=== PATIENT | male | born 1995 | race Caucasian/White ===

== ENCOUNTER 2025-04-19 18:41 | Emergency (ER) | payer OTHER, SELFPAY ==
--- OUTSIDE RECORDS SUMMARY | 2025-04-19 14:03 | XMS_ITS | Encounter Summary ---
Author Organization [facility] tem Address [id number] [address] [place] [address] Care Team Providers Care Blueprint Duplicator Name Role Phone Unavailable Primary Care Provider Unavailabl e Reason for Visit * ReasonCommentsAbdominal Pain Encounter Details DateTypeDepartmentCare Team (Latest Contact Info)Eamskppizwp93/28/2025 2:03 PM EST - 04/19/2025 5:04 PM ESTEmerVan Wert [facility] - [facility] Department [address] [facility] [place] [address] Discharge Disposition: Left Without Treatment Social History Tobacco UseTypesPacks/DayYears UsedDateSmoking Tobacco: NeverSmokeless Tobacco: Never Tobacco Cessation:Counseling Given: Not Answered Alcohol UseStandard Drinks/WeekCommentsYes0 (1 standard drink = 0.6 oz pure alcohol)1x weekChildcareAnswerDate VjlydgmnUjyrrbippCmselsz07/12/2019Employment AnswerDate HqqblcjbOxldwpnqqpIxkvlez58/12/2019Hunger ScreeningAnswerDate RecordedWithin the past 12 months we worried whether our food would run out before we got money to buy more.Never True04/19/2025Within the past 12 months the food we bought just didn't last and we didn't have money to get more.Never True04/19/2025Sex and Gender InformationValueDate RecordedSex Assigned at Not on fileLegal OqcDaxb5912/26/2014 12:13 PM EDTGender IdentityNot on fileSexual OrientationNot on filedocumented as of this encounter Last Filed Vital Signs Vital SignReadingTime TakenCommentsBlood Lxvvoiim033/9804/19/2025 2:17 PM EST Xrvxz75606/ 2:17 PM BHWZaalridjejc87.6 ??C (97.8 ??F)04/19/2025 2:17 PM ESTRespiratory Jzqi220606/19/2024 2:17 PM ESTOxygen Owjhpyrbzl27%04/19/2025 2:17 PM ESTInhaled Oxygen Concentration--Zxkupp207.3 kg (230 lb)04/19/2025 2:17 PM BZGGreuji608.2 cm (5' 7 )04/19/2025 2:17 PM ESTBody Mass Index36.02106/19/2024 2:17 PM ESTdocumented in this encounter ED Notes * Oma Bob RN - 04/19/2025 2:15 PM EST Pt ambulatory with reports of sudden onset of RLQ abd pain that started this morning. Pt denies hx of abdominal pain. Denies N/V/D. A&Ox4 documented in this encounter Plan of Treatment Not on file documented as of this encounter Procedures Procedure NamePriorityDate/TimeAssociated DiagnosisCommentsCBC WITH AUTO NYITQIFNANRAHXDO08/28/2025 2:18 PM EST ABAGQIODAN90/28/2025 2:18 PM EST COMPREHENSIVE METABOLIC VFKXOYMDJ68/28/2025 2:18 PM EST documented in this encounter Results * Lipase (04/19/2025 2:18 PM EST)ComponentValueRef RangeTest MethodAnalysis Time Performed AtPathologist IlbiphjxdODVDPF2811 - 82 U/L106/19/2024 3:03 PM EST [facility] LABORATORYSpecimen (Source)Anatomical Location / LateralityCollection Method / VolumeCollection TimeReceived TimeBloodVenous blood / UnknownVenipuncture / Nnnbexq5904/19/2025 2:18 PM EST04/19/2025 2:30 PM EST Narrative Authorizing ProviderResult TypeResult StatusMaxkeven Kimball Buchwalder DOLAB BLOOD ORDERABLESFinal ResultPerforming OrganizationAddressCity/State/ZIP CodePhone Number [facility] [address] [place] [phone], * (ABNORMAL) Comprehensive metabolic panel (04/19/2025 2:18 PM EST)Component ValueRef RangeTest MethodAnalysis TimePerformed AtPathologist SignatureSODIUM 590426 - 146 mmol/L106/19/2024 3:03 PM [facility] POTASSIUM3.83.5 - 5.0 mmol/L106/19/2024 3:03 PM [facility] KGVLMJVYSXBSPZXLBF24655 - 109 mmol/L106/19/2024 3:03 PM [facility] LABORATORYCARBON VIHEYLA2056 - 32 mmol/L106/19/2024 3:03 PM [facility] LABORATORYANION BJP976 - 15 mmol/L106/19/2024 3:03 PM [facility] LABORATORYBLOOD UREA ANRGAOXH463 - 23 mg/dL04/19/2025 3:03 PM [facility] LABORATORYCREATININE0.860.60 - 1.30 mg/dL 04/19/2025 3:03 PM [facility] LABORATORYComment:METHOD TRACEABLE TO IDMS QCARWCTCCUPKDLI212(H)65 - 99 mg/dL04/19/2025 3:03 PM [facility] LABORATORYCALCIUM9.88.5 - 10.5 mg/dL04/19/2025 3:03 PM [facility] LABORATORYTOTAL PROTEIN7.36.0 - 8.0 g/dL 04/19/2025 3:03 PM [facility] LABORATORYALBUMIN4.83.2 - 5.3 g/dL04/19/2025 3:03 PM [facility] LABORATORYALKALINE WVAGKAVSOGD6174 - 130 U/L106/19/2024 3:03 PM [facility] VTZMNQVAXPJQB05(H)<=41 U/L106/19/2024 3:03 PM [facility] MGGSDHYIRFMPI942(H)<=40 U/L106/19/2024 3:03 PM [facility] LABORATORYBILIRUBIN,TOTAL0.30.3 - 1.2 mg/dL04/19/2025 3:03 PM [facility] LABORATORYEGFR Non-Race Dependent>90>=60 ml/min/1.73sq.m 04/19/2025 3:03 PM [facility] LABORATORYComment: Reported eGFR is based on the CKD-EPI 2020 equation that does not use a race coefficient. Specimen (Source)Anatomical Location / LateralityCollection Method / Volume Collection TimeReceived TimeBloodVenous blood / UnknownVenipuncture / Unknown 04/19/2025 2:18 PM EST04/19/2025 2:30 PM EST Narrative Authorizing ProviderResult TypeResult StatusMaxwakemed cary hospital Jigar [facility] BLOOD ORDERABLESFinal ResultPerforming OrganizationAddressCity/State/ZIP CodePhone Number [facility] [address] [place] [address], * (ABNORMAL) CBC auto differential (04/19/2025 2:18 PM EST)ComponentValueRef RangeTest MethodAnalysis TimePerformed AtPathologist SignatureWBC7.64 - 11 10^9/L106/19/2024 2:44 PM [facility] LABORATORYRBC Count6.40 (H)4.1 - 5.7 10^12/L106/19/2024 2:44 PM [facility] Pgarptjncz45.913 - 17 g/dL04/19/2025 2:44 PM [facility] RLIBNVVABDSlwqqczmrq44.339 - 50 %04/19/2025 2:44 PM [facility] WPZUFVZZTFIXN77(L)80 - 100 fL04/19/2025 2:44 PM [facility] TJCCVTPUQMOLH73.9(L)27 - 34 pg04/19/2025 2:44 PM [facility] TFGROVFQPUXOKB35.032 - 36 g/dL04/19/2025 2:44 PM [facility] SZXSRRZAWDBXV27.011.5 - 15 %04/19/2025 2:44 PM [facility] LABORATORYPlatelet Rocnu922550 - 450 10^9/L106/19/2024 2:44 PM [facility] LABORATORYMPV7.57 - 12 fL04/19/2025 2:44 PM [facility] LABORATORYNeutrophils %63.8%04/19/2025 2:44 PM [facility] LABORATORYLymphocytes %26.2%04/19/2025 2:44 PM [facility] LABORATORYMonocytes %8.0%04/19/2025 2:44 PM [facility] LABORATORYEosinophils %1.2%04/19/2025 2:44 PM [facility] LABORATORYBasophils %0.8%04/19/2025 2:44 PM [facility] LABORATORYNeutrophils Absolute (A)4.81.5 - 6.6 10^9/L 04/19/2025 2:44 PM [facility] LABORATORYLymphocytes Absolute 2.01.0 - 3.5 10^9/L106/19/2024 2:44 PM [facility] Monocytes Absolute0.60.0 - 0.9 10^9/L106/19/2024 2:44 PM [facility] LABORATORYEosinophils Absolute0.10.0 - 0.4 10^9/L106/19/2024 2:44 PM [facility] LABORATORYBasophils Absolute0.10.0 - 0.2 10^9/L 04/19/2025 2:44 PM [facility] LABORATORYDifferential Type AUTOMATED DJFJMZNIUQDW46/28/2025 2:44 PM [facility] LABORATORYSpecimen (Source)Anatomical Location / LateralityCollection Method / VolumeCollection TimeReceived TimeBloodVenous blood / UnknownVenipuncture / Kgctftd5404/19/2025 2:18 PM EST04/19/2025 2:29 PM EST Narrative Authorizing ProviderResult TypeResult StatusMaxkeven Phillipser DOL BLOOD ORDERABLESFinal ResultPerforming OrganizationAddressCity/State/ZIP CodePhone Number [facility] [address] [place] [phone], documented in this encounter Visit Diagnoses Not on filedocumented in this encounter
[2025-04-19 19:06] VITALS: BP 134/90; PULSE 108; TEMP 37; O2SAT 96; BMI 36.0
--- NOTE | 2025-04-19 19:22 | CT_ITS ---
The [address] [address] Patient Name: CLAIRE VILA MRN: [facility]:[id number] date: 1995 Sex: M Assigned Patient Location: ER Current Patient Location: ED.MAIN Accession/Order Number: [id number] Exam Date: 04/19/2025 19:28 Report Date: 04/19/2025 19:59 At the request of: JUSTIN SAVAGE DO Procedure: CT abdomen pelvis wo con CT ABDOMEN AND PELVIS WITHOUT INTRAVENOUS CONTRAST: CLINICAL HISTORY: RLQ pain, r/o ureterolithiasis COMPARISON: None TECHNIQUE: Spiral images were obtained through the abdomen and pelvis without intravenous contrast. This CT exam was performed using one or more following dose reduction techniques: Automated exposure control, adjustment of the mA and/or kV according to patient size, or use of iterative reconstruction technique. FINDINGS: Lung Bases: [Focal lingular scarring versus atelectasis. Otherwise lung bases are clear. Organs:2 mm right renal calculus, nonobstructive. Additional punctate right lower pole calculus and punctate left upper pole calculus, nonobstructive. Negative for hydronephrosis. No ureterolithiasis. Fatty liver. Gallbladder, spleen, adrenals, pancreas unremarkable.[ GI: Mild to moderate retained stool. No bowel obstruction. Appendix is unremarkable.[ Pelvis:[Bladder unremarkable. Prostate unremarkable.] Peritoneum/Retroperitoneum:No free air or fluid.[There are a few prominent mesenteric lymph nodes, possibly reactive. Abd wall/Bones:No suspicious osseous lesion.[ CT/CT abdomen pelvis wo con IMPRESSION: Bilateral nonobstructive renal calculi up to 2 mm in size. Fatty infiltration liver. Negative acute inflammatory process or bowel obstruction. Impression dictated by: Luciano Aguilar M.D. 04/19/2025 7:59 PM Dictation Location: [place] [address] Electronically authenticated by: [id number] Y Date: 04/19/2025 19:59
--- OUTSIDE RECORDS SUMMARY | 2025-04-19 19:40 | XMS_ITS | Clinical Summary ---
Author Organization [facility] Ping4 [facility] Address [id number] [address] [place] [address] Care Team Providers Care Jewel Gauger Name Role Phone Unavailable Primary Care Provider Unavailabl e Allergies No known active allergies Medications No known medications Encounters DateTypeDepartmentCare DljfDhbcugroiow15/28/2025 2:03 PM EST - 04/19/2025 5:04 PM [facility] [address] [facility] [place] [id number] Discharge Disposition: Left Without Vgptqjqau87/28/2025Travelfrom Last 3 Months Social History Tobacco UseTypesPacks/DayYears UsedDateSmoking Tobacco: NeverSmokeless Tobacco: Never Tobacco Cessation:Counseling Given: Not Answered Alcohol UseStandard Drinks/WeekCommentsYes0 (1 standard drink = 0.6 oz pure alcohol)1x weekChildcareAnswerDate IompxeymYsvexeglhYohqzfh01/12/2019Employment AnswerDate FbnpcfyfAujsxvubpaKnbqnhk31/12/2019Hunger ScreeningAnswerDate RecordedWithin the past 12 months we worried whether our food would run out before we got money to buy more.Never True04/19/2025Within the past 12 months the food we bought just didn't last and we didn't have money to get more.Never True04/19/2025Sex and Gender InformationValueDate RecordedSex Assigned at Not on fileLegal MpxTsxo8512/26/2014 12:13 PM EDTGender IdentityNot on fileSexual OrientationNot on file Last Filed Vital Signs Vital SignReadingTime TakenCommentsBlood Tnizcndu083/9804/19/2025 2:17 PM EST Brgby46365/28/2025 2:17 PM HHJTggdxqyypyn17.6 ??C (97.8 ??F)04/19/2025 2:17 PM ESTRespiratory Lgob677606/19/2024 2:17 PM ESTOxygen Lfqjskszvf54%04/19/2025 2:17 PM ESTInhaled Oxygen Concentration--Ueorsp659.3 kg (230 lb)04/19/2025 2:17 PM ZWTUqejhu166.2 cm (5' 7 )04/19/2025 2:17 PM ESTBody Mass Index36.02106/19/2024 2:17 PM EST Plan of Treatment Not on file Medical Devices Not on file Procedures Procedure NamePriorityDate/TimeAssociated UqgiklfddRoopnakiWYMOBDKAEX08/28/2025 2:18 PM EST COMPREHENSIVE METABOLIC JRDJGUUDH23/28/2025 2:18 PM EST CBC WITH AUTO FVHASUETJAMHASPZ89/28/2025 2:18 PM EST from Last 3 Months Results * (ABNORMAL) CBC auto differential (04/19/2025 2:18 PM EST)ComponentValueRef RangeTest MethodAnalysis TimePerformed AtPathologist SignatureWBC7.64 - 11 10^9/L106/19/2024 2:44 PM [facility] LABORATORYRBC Count6.40 (H)4.1 - 5.7 10^12/L106/19/2024 2:44 PM [facility] Vritoejcim50.913 - 17 g/dL04/19/2025 2:44 PM [facility] DIRRBPLFCWSskextqcvg64.339 - 50 %04/19/2025 2:44 PM [facility] SPGFTNWVDTYMO06(L)80 - 100 fL04/19/2025 2:44 PM [facility] RAAAYLRTLNWKZ23.9(L)27 - 34 pg04/19/2025 2:44 PM [facility] TEJFIZYMISSZDS85.032 - 36 g/dL04/19/2025 2:44 PM [facility] GIKQVZGYFJNGE81.011.5 - 15 %04/19/2025 2:44 PM [facility] LABORATORYPlatelet Bxiag936808 - 450 10^9/L106/19/2024 2:44 PM [facility] [...] LABORATORYEosinophils Absolute0.10.0 - 0.4 10^9/L106/19/2024 2:44 PM [facility] LABORATORYBasophils Absolute0.10.0 - 0.2 10^9/L 04/19/2025 2:44 PM [facility] LABORATORYDifferential Type AUTOMATED OEKMGIXVNEPM61/28/2025 2:44 PM [facility] LABORATORYSpecimen (Source)Anatomical Location / LateralityCollection Method / VolumeCollection TimeReceived TimeBloodVenous blood / UnknownVenipuncture / Ilppoii9604/19/2025 2:18 PM EST04/19/2025 2:29 PM EST Narrative Authorizing ProviderResult TypeResult StatusMaxkeven Cavazos DOLAB BLOOD ORDERABLESFinal ResultPerforming OrganizationAddressCity/State/ZIP CodePhone Number [facility] [address] [place] [address], * Lipase (04/19/2025 2:18 PM EST)ComponentValueRef RangeTest MethodAnalysis Time Performed AtPathologist PdqxbpwcuNRWXEF0839 - 82 U/L106/19/2024 3:03 PM EST [facility] LABORATORYSpecimen (Source)Anatomical Location / LateralityCollection Method / VolumeCollection TimeReceived TimeBloodVenous blood / UnknownVenipuncture / Cpcsgdc2304/19/2025 2:18 PM EST04/19/2025 2:30 PM EST Narrative Authorizing ProviderResult TypeResult StatusMaxatrium health [facility] BLOOD ORDERABLESFinal ResultPerforming OrganizationAddressCity/State/ZIP CodePhone Number [facility] [address] [place] [address], * (ABNORMAL) Comprehensive metabolic panel (04/19/2025 2:18 PM EST)Component ValueRef RangeTest MethodAnalysis TimePerformed AtPathologist SignatureSODIUM 803952 - 146 mmol/L106/19/2024 3:03 PM [facility] POTASSIUM3.83.5 - 5.0 mmol/L106/19/2024 3:03 PM [facility] DXBOTEVIAXBEARBWLU17021 - 109 mmol/L106/19/2024 3:03 PM [facility] LABORATORYCARBON BJOVNMR2045 - 32 mmol/L106/19/2024 3:03 PM [facility] LABORATORYANION PDG785 - 15 mmol/L106/19/2024 3:03 PM [facility] LABORATORYBLOOD UREA QUPLDVLU750 - 23 mg/dL04/19/2025 3:03 PM [facility] LABORATORYCREATININE0.860.60 - 1.30 mg/dL 04/19/2025 3:03 PM [facility] LABORATORYComment:METHOD TRACEABLE TO IDMS ZYPSLDVTDITVXST514(H)65 - 99 mg/dL04/19/2025 3:03 PM [facility] LABORATORYCALCIUM9.88.5 - 10.5 mg/dL04/19/2025 3:03 PM [facility] LABORATORYTOTAL PROTEIN7.36.0 - 8.0 g/dL 04/19/2025 3:03 PM [facility] LABORATORYALBUMIN4.83.2 - 5.3 g/dL04/19/2025 3:03 PM [facility] LABORATORYALKALINE HFBUGYWNJEL6328 - 130 U/L106/19/2024 3:03 PM [facility] VOCTAHNIOUKXN51(H)<=41 U/L106/19/2024 3:03 PM [facility] RFBOEVFRJZQHK151(H)<=40 U/L106/19/2024 3:03 PM [facility] [...] PM EST Narrative Authorizing ProviderResult TypeResult StatusMaxkeven Cavazos [facility] BLOOD ORDERABLESFinal ResultPerforming OrganizationAddressCity/State/ZIP CodePhone Number [facility] [address] [place] [address], [place] [phone] from Last 3 Months
--- OUTSIDE RECORDS SUMMARY | 2025-04-19 19:40 | XMS_ITS | Encounter Summary ---
Author Organization [employer] tem Address [id number] [address] [place] [address] Care Team Providers Care Fashion Director Name Role Phone Unavailable Primary Care Provider Unavailabl e Encounter Details DateTypeDepartmentCare Team (Latest Contact Info)Njfldwzjofm62/28/2025Travel Social History Tobacco UseTypesPacks/DayYears UsedDateSmoking Tobacco: NeverSmokeless Tobacco: NeverAlcohol UseStandard Drinks/WeekCommentsYes0 (1 standard drink = 0.6 oz pure alcohol)1x weekChildcareAnswerDate UplrbftsHptunrisrRjuujpk20/12/2019Employment AnswerDate QtmripnbCojzsldfovPuxipor00/12/2019Hunger ScreeningAnswerDate RecordedWithin the past 12 months we worried whether our food would run out before we got money to buy more.Never True04/19/2025Within the past 12 months the food we bought just didn't last and we didn't have money to get more.Never True04/19/2025Sex and Gender InformationValueDate RecordedSex Assigned at Not on fileLegal VzvUzhk6912/26/2014 12:13 PM EDTGender IdentityNot on fileSexual OrientationNot on filedocumented as of this encounter Plan of Treatment Not on file documented as of this encounter Visit Diagnoses Not on filedocumented in this encounter
--- OUTSIDE RECORDS SUMMARY | 2025-04-19 19:40 | XMS_ITS | Clinical Summary ---
Author Organization [facility] Address [address] [place] [address] Care Team Providers Care Mechanical Specialist Name Role Phone Nicole Gomez MA Primary Care Provider Unavail able Allergies No known active allergies Medications No known medications Social History Tobacco UseTypesPacks/DayYears UsedDateSmoking Tobacco: Never AssessedSex and Gender InformationValueDate RecordedSex Assigned at BirthNot on fileLegal Sex Male08/04/2022 6:39 PM EDTGender IdentityNot on fileSexual OrientationNot on file Last Filed Vital Signs Vital SignReadingTime TakenCommentsBlood Qnmcqvyw825/8412/11/2023 12:08 PM EDT Xmbjz15358/21/2024 12:08 PM OIFPzkdsqnopia73.8 ??C (100 ??F)12/11/2023 12:08 PM EDTRespiratory Rate--Oxygen Vxhcyguxwc85%12/11/2023 12:08 PM EDTInhaled Oxygen Concentration--Snqwxp94.2 kg (212 lb)12/11/2023 12:08 PM GFZBinwzb700.2 cm (5' 7 )04/02/2021 12:00 PM ESTBody Mass Index33. 12:00 PM EST Plan of Treatment Health MaintenanceDue DateLast DoneCommentsCOVID-19 Vaccine ( season) 2025Influenza Vaccine (#1)2025Pneumococcal Vaccine: Pediatrics (0 to 5 Years) and At-Risk Patients (6 to 64 Years)Aged OutNo longer eligible based on patient's age to complete this topic Insurance Care Teams Team MemberRelationshipSpecialtyStart DateEnd Date Nicole Gomez MA [address] [place] [address] PCP - GeneralObstetrics and Gynecology12/11/23
--- OUTSIDE RECORDS SUMMARY | 2025-04-19 19:40 | XMS_ITS | Clinical Summary ---
Author Organization [facility] Address [address] [place] [address] Care Team Providers Care Yard Driver Name Role Phone Jason TOURE DO, Rolland R Unavailable [phone] Family History Medical HistoryRelationCommentsSkin CancerFatherThyroid CancerFatherMelanoma Maternal AuntHodgkin LymphomaMaternal GrandfatherProstate CancerPaternal GrandfatherBladder CancerPaternal UncleRelationStatusCommentsFatherMaternal Aunt AliveMaternal GrandfatherPaternal GrandfatherPaternal UncleAlive Social History Tobacco UseTypesPacks/DayYears UsedDateSmoking Tobacco: Never AssessedArea Deprivation IndexAnswerDate RecordedNational Score (1-100), lower number is lower swip858610/04/2023State Score (1-10), lower number is lower rgpo863 Data from: https://www.neighborhoodatlas.[facility].edu/. Last address used for [address] [address]/04/2023Sex and Gender InformationValueDate RecordedSex Assigned at BirthNot on fileLegal QusAoaq4209/13/2023 1:13 PM EDT Gender IdentityNot on fileSexual OrientationNot on file Plan of Treatment Health MaintenanceDue DateLast DoneCommentsDTaP,Tdap,Td Vaccine (6 - Tdap) , 02/07/1995, 05/12/1994, Additional history existsAnxiety Goseytnki20/12/2012Depression Qqhuryakc99/12/2012HIV Riftnfhjm88/12/2012 Hepatitis C Szssuhblq08/12/2012Covid-19 Vaccine (2024- season)2025 Influenza Vaccine (#1)2025Hepatitis B BvenvtlNwvybknbc75/05/1999, 05/12/1994, 02/12/1994, Additional history existsHPV OfwqcohSjciafxkl99/23/2016, 04/15/2015, 02/11/2015 Insurance Care Teams Team MemberRelationshipSpecialtyStart DateEnd Date Miguel Angel Gomez III, DO [address] [place] [address] ReferringFamily [facility]09/19/23
[2025-04-19 19:43] LABS: Hematocrit 50.3 % (42.0-54.0); Hemoglobin 16.5 g/dL (14.0-18.0); Immature Granulocytes Abs Auto 0.06 10^3/uL (0.00-0.03); Immature Granulocytes Pct Auto 0.6 % (0.0-0.5); Lymphocytes Absolute Auto 2.9 10^3/uL (1.2-3.8); Mean Corpuscular HGB Conc 32.8 g/dL (29.9-35.2); Mean Corpuscular Hemoglobin 25.0 pg (25.9-34.0); Mean Corpuscular Volume 76.2 fL (80.0-94.0); Platelet Count 282 10^3/uL (150-450); Red Blood Count 6.60 10^6/uL (4.70-6.10); White Blood Count 10.6 10^3/uL (4.0-11.0)
[2025-04-19 20:01] LABS: Alanine Aminotransferase 252 U/L (16-63); Albumin Globulin Ratio 1.3; Albumin Level 4.4 g/dL (3.4-5.0); Alkaline Phosphatase 80 U/L (46-116); Anion Gap 8.1; Aspartate Amino Transferase 75 U/L (15-37); Blood Urea Nitrogen 12.0 mg/dL (7.0-18.0); Calcium 9.8 mg/dL (8.5-10.1); Carbon Dioxide 31.3 mmol/L (21.0-32.0); Chloride 102 mmol/L (98-107); Estimated GFR (African America >60 (>=60 mL/min/1.73m^2); Estimated GFR (Non-African Ame >60 (>=60 mL/min/1.73m^2); Globulin 3.4 g/dL; Glucose 139 mg/dL (74-106); Potassium 4.4 mmol/L (3.5-5.1); Sodium 137 mmol/L (136-145); Total Protein 7.8 g/dL (6.4-8.2)
--- NOTE | 2025-04-19 20:20 | ED.GENADUL1 ---
HPI HPI - General Adult General Chief complaint: Abdominal Pain Stated complaint: Abdominal Pain Time Seen by Provider: 04/19/25 19:04 Source: patient Mode of arrival: walk-in History of Present Illness HPI narrative: Patient is a 29-year-old male presenting to the emergency department for evaluation of right lower quadrant pain. Patient states that his symptoms started early this morning. He states the pain comes and goes. He was seen at an outside emergency department where they took his blood, however he was in the waiting room for too long, so decided to come to our ED. He has never had pain like this before. He states the pain is sharp in nature. He denies any associated nausea or vomiting. No fevers or chills. No dysuria or hematuria. He is otherwise healthy with no chronic medical conditions. Related Data Home Medications ?Medication ?Instructions ?Recorded ?Confirmed No Known Home Medications 04/19/25 04/19/25 Allergies Allergy/AdvReac Type Severity Reaction Status Date / Time No Known Drug Allergies Allergy Verified 04/19/25 19:05 Opioid HPI Opioid Management Most Recent Opioid Data: Last Pain Scale 0 Today, 20:12 Last ED Pain Assessment Today, 20:10 Last MAR Pain Assessment Today, 20:12 Review of Systems ROS Status of ROS 10 or more systems reviewed and unremarkable except as noted in history and below PFSH PFSH Social History Little interest or pleasure in doing things: not at all Feeling down, depressed, or hopeless: not at all Exam Narrative Exam Narrative: CONSTITUTIONAL: Well-appearing, answering questions and following commands appropriately SKIN: Was warm and dry. EYES: Sclerae white. EARS, NOSE, THROAT: Moist oral mucosa. RESPIRATORY: Clear to auscultation bilaterally, no wheezes, crackles, or stridor, no use of accessory muscles CARDIOVASCULAR: Normal rate and regular rhythm. There is no S3, S4, murmur, rub. GASTROINTESTINAL: Abdomen is soft, nontender, nondistended. No rebound tenderness or guarding. MUSCULOSKELETAL: No peripheral edema. NEUROLOGIC: Patient is awake and alert. Facies were symmetrical. Constitutional Vital Signs, click to edit/add: Last Vital Signs Temp 98.6 F 04/19/25 19:06 Pulse 108 H 04/19/25 19:06 Resp 20 04/19/25 19:06 BP 134/90 04/19/25 19:06 Pulse Ox 96 04/19/25 19:06 O2 Del Method Room Air 04/19/25 19:06 Course Vital Signs Vital signs: Vital Signs Temperature 98.6 F 04/19/25 19:06 Pulse Rate 108 H 04/19/25 19:06 Respiratory Rate 20 04/19/25 19:06 Blood Pressure 134/90 04/19/25 19:06 Pulse Oximetry 96 04/19/25 19:06 Oxygen Delivery Method Room Air 04/19/25 19:06 Temperature 98.6 F 04/19/25 19:06 Pulse Rate 108 H 04/19/25 19:06 Respiratory Rate 20 04/19/25 19:06 Blood Pressure 134/90 04/19/25 19:06 Pulse Oximetry 96 04/19/25 19:06 Oxygen Delivery Method Room Air 04/19/25 19:06 Medical Decision Making MDM Narrative Medical decision making narrative: Patient is a 29-year-old male presenting to the emergency department with intermittent right lower quadrant abdominal pain. His vital signs are significant for mild hypertension, otherwise were within normal limits. He is afebrile and hemodynamically stable. Examination as noted above. My clinical impression is that the patient's symptoms are secondary to renal colic. He has no abdominal tenderness, making appendicitis less likely. CT abdomen was ordered. IV was established and laboratory studies were obtained. I ordered IV ketorolac and IV Zofran, however the patient declined the medications as his symptoms are now improving. Laboratory studies were unremarkable. No significant electrolyte or metabolic derangement. No evidence of acute kidney injury. No anemia, leukocytosis, or thrombocytopenia. Mild transaminitis, likely related to fatty liver disease. No hyperbilirubinemia. Urinalysis negative. CT abdomen/pelvis independently reviewed and interpreted by myself and radiology demonstrated bilateral nonobstructive renal calculi up to 2 mm in size. Fatty infiltration of the liver. I do believe the patient is stable for discharge. Patient's presentation is most likely consistent with a passed kidney stone. They were instructed to follow up with his PCP for further care. Return precautions were given including any new or worsening symptoms. Patient understands and agrees to the plan. FINAL IMPRESSION: #Acute renal colic, resolved #Hepatic steatosis DISPOSITION: Discharged home CONDITION: Good Lab Data Lab results reviewed: Yes I reviewed the patient's lab results Labs: Lab Results 04/19/25 Range/Units 19:31 WBC 10.6 (4.0-11.0) 10^3/uL RBC 6.60 H (4.70-6.10) 10^6/uL Hgb 16.5 (14.0-18.0) g/dL Hct 50.3 (42.0-54.0) % MCV 76.2 L (80.0-94.0) fL MCH 25.0 L (25.9-34.0) pg MCHC 32.8 (29.9-35.2) g/dL RDW 14.3 (11.0-15.0) % Plt Count 282 (150-450) 10^3/uL MPV 9.7 (9.5-13.5) fL Neut % (Auto) 65.8 (43.0-75.0) % Lymph % (Auto) 26.9 (20.5-60.0) % [place] % (Auto) 5.0 (1.7-12.0) % Eos % (Auto) 1.0 (0.9-7.0) % Baso % (Auto) 0.7 (0.2-2.0) % Neut # (Auto) 7.0 H (1.4-6.5) 10^3/uL Lymph # (Auto) 2.9 (1.2-3.8) 10^3/uL [place] # (Auto) 0.5 (0.3-0.8) 10^3/uL Eos # (Auto) 0.1 (0.0-0.7) 10^3/uL Baso # (Auto) 0.1 (0.0-0.1) 10^3/uL Abs Immat Gran (auto) 0.06 H (0.00-0.03) 10^3/uL Imm/Tot Granulo (auto) 0.6 H (0.0-0.5) % Sodium 137 (136-145) mmol/L Potassium 4.4 (3.5-5.1) mmol/L Chloride 102 (98-107) mmol/L Carbon Dioxide 31.3 (21.0-32.0) mmol/L Anion Gap 8.1 BUN 12.0 (7.0-18.0) mg/dL Creatinine 0.75 (0.70-1.30) mg/dL Est GFR ( Amer) >60 (>=60 mL/min/1.73m^2) Est GFR (Non-Af Amer) >60 (>=60 mL/min/1.73m^2) BUN/Creatinine Ratio 16.0 Glucose 139 H (74-106) mg/dL Calcium 9.8 (8.5-10.1) mg/dL Total Bilirubin 0.5 (0.2-1.0) mg/dL AST 75 H (15-37) U/L ALT 252 H (16-63) U/L Alkaline Phosphatase 80 (46-116) U/L Total Protein 7.8 (6.4-8.2) g/dL Albumin 4.4 (3.4-5.0) g/dL Globulin 3.4 g/dL Albumin/Globulin Ratio 1.[address] scan - abdomen: Attestation: I personally reviewed and interpreted this imaging study as follows: Radiologist's impression: ITS Impressions Abdomen/Pelvis CT 04/19/25 19:22 IMPRESSION: Bilateral nonobstructive renal calculi up to 2 mm in size. Fatty infiltration liver. Negative acute inflammatory process or bowel obstruction. Impression dictated by: Luciano Aguilar M.D. 04/19/2025 7:59 PM Dictation Location: [place] [id number] Electronically authenticated by: [id number] Y Date: 04/19/2025 19:59 Discharge Plan Discharge Chief Complaint: Abdominal Pain Clinical Impression: Calculus of kidney, Fatty liver Patient Disposition: Home, Self-Care Time of Disposition Decision: 20:21 Condition: Good Mode of Transportation: Private Vehicle Prescriptions / Home Meds: No Action No Known Home Medications Print Language: Korean Instructions: Kidney Stones (ED), Non-Alcoholic Fatty Liver Disease (ED) Referrals: Miguel Angel Gomez DO [Primary Care Provider] - 1 week
[2025-04-19 20:27] LABS: Glucose Urine UA NEGATIVE (NEGATIVE)
[2025-04-19 20:36] LABS: Cast Seen? NONE SEEN #/LPF (NONE SEEN); Crystals Seen? None Seen #/HPF (None Seen); Urine Culture Indicated NO
[2025-04-19 20:45] VITALS: PULSE 98; O2SAT 98
== END 2025-04-19 20:48 | disposition home or self-care (01) ==
PROVIDERS: Emergency Provider Student in an Organized Health Care Education/Training Program; Family Provider Family Medicine; PCP Family Medicine
DX: N20.0 Calculus of kidney (principal); K76.0 Fatty (change of) liver, not elsewhere classified
CPT/HCPCS: 36415; 74176; 80053; 81001; 85025; 99285